=== PATIENT | male | born 1985 | race Hispanic/Latino ===

== ENCOUNTER 2019-04-21 10:07 | Emergency (ER) | payer SELFPAY ==
--- NOTE | 2019-04-21 10:55 | RAD ---
RADIOGRAPH CHEST AND RIGHT RIBS 4 VIEWS: Date: 04/21/19 HISTORY: 33-year-old male with traumatic right rib pain after fall from roof. FINDINGS: No air space density, pneumothorax, pulmonary edema, or cardiomegaly. No displaced right rib fracture identified. IMPRESSION: Negative. POS: [facility]
== END 2019-04-21 11:03 | disposition home or self-care (01) ==
LOC: SCSER 10:07
DX: S20.211A Contusion of right front wall of thorax, initial encounter (principal); W18.30XA Fall on same level, unspecified, initial encounter

== ENCOUNTER 2024-11-01 11:25 | Emergency (ER) | payer SELFPAY ==
[2024-11-01] MEDS ORDERED: HYDROcodone/Acetaminophen 5/325 mg Tablet ONE (14:25)
[2024-11-01] MEDS ORDERED: Ibuprofen 800 MG TAB ONE (14:25)
== END 2024-11-01 15:41 | disposition home or self-care (01) ==
LOC: ERS 11:25
DX: M54.50 Low back pain, unspecified (principal)
CPT/HCPCS: 72100; 99283